=== PATIENT | female | born 1940 | race Caucasian/White ===

== ENCOUNTER 2024-06-14 13:36 | Outpatient (REF) | payer MEDICARE, SELFPAY ==
--- NOTE | 2024-06-14 13:44 | EMG_ITS ---
Chief complaint: A few years of right hand numbness, especially in the morning, history of cervical fusion Reason for referral: Evaluate for Carpal Tunnel Syndrome Referred by: Bart PATEL Procedure done: Right upper extremity NCS/EMG Precautions and/or limitations: Previous cervical fusion The limb temperature was monitored continuously and remained between 32-36 degrees C during the performance of the NCS. Ulnar motor NCS was performed with moderate elbow flexion between 70-90 degrees, with across-elbow distance of 10 cm. Nerve Conduction Studies Anti Sensory Summary Table ?Stim Site NR Onset (ms) Norm Onset (ms) Peak (ms) Norm Peak (ms) O-P Amp (?V) Norm O-P Amp Site1 Site2 Delta-0 (ms) Dist (cm) Alvin (m/s) Norm Alvin (m/s) Right Median Anti Sensory (2nd Digit) Wrist NR <3.6 >10 Right Radial Anti Sensory (Thumb) Forearm ? 1.8 2.4 <3.1 17.7 Forearm Thumb 1.8 0.0 Right Ulnar Anti Sensory (5th Digit) Wrist ? 2.8 3.6 <3.7 17.1 >15.0 Wrist 5th Digit 2.8 14.0 50 Motor Summary Table ?Stim Site NR Onset (ms) Norm Onset (ms) O-P Amp (mV) Norm O-P Amp iAmp (mV) Amp (1st) (%) Site1 Site2 Delta-0 (ms) Dist (cm) Alvin (m/s) Norm Alvin (m/s) Right Median Motor (Abd Poll Brev) Wrist ? 7.1 <3.9 3.4 >4.5 3.9 100.0 Elbow Wrist 3.2 17.0 53 >45 Elbow ? 10.3 3.1 3.6 91.2 Right Ulnar Motor (Abd Dig Minimi) Wrist ? 3.4 <3.0 10.3 >5 12.1 100.0 B Elbow Wrist 2.8 18.0 64 >45 B Elbow ? 6.2 9.8 11.6 95.1 A Elbow B Elbow 1.1 10.0 91 >45 A Elbow ? 7.3 9.9 11.7 96.1 EMG ?Side Muscle Nerve Root Ins Act Fibs Psw Amp Dur Poly Recrt Int Pat Comment Right 1stDorInt Ulnar C8-T1 Incr 1+ 1+ Nml Nml 0 Nml Complete Right FlexCarRad Median C6-7 Nml Nml Nml Nml Nml 0 Nml Complete Right Biceps Musculocut C5-6 Nml Nml Nml Nml Nml 0 Nml Complete Right Triceps Radial C6-7-8 Nml Nml Nml Nml Nml 0 Nml Complete Right Deltoid Axillary C5-6 Nml Nml Nml Nml Nml 0 Nml Complete Right FlexCarpiUln Ulnar C8,T1 Nml Nml Nml Nml Nml 0 Nml Complete Right ExtIndicis Radial (Post Int) C7-8 Nml Nml Nml Nml Nml 0 Nml Complete FINDINGS: Right median motor nerve showed prolonged distal latency, small amplitude and normal conduction velocity. Right ulnar motor nerve showed prolonged distal latency, normal amplitude and normal conduction velocity. Right median sensory nerve absent response. All other nerves tested were within normal. Concentric needle EMG was performed in selected muscles of the right upper extremity. Study revealed signs of electric abnormalities as shown in the table above. Right FDI showed increased insertional activity, PSWs and fibrillations. IMPRESSION: 1. This is an abnormal study. 2. 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 3. There are electrodiagnostic findings suggestive of a either chronic ulnar neuropathy versus C8-T1 cervical radiculopathy. CLINICAL COMMENT: Further clinical correlation recommended. Thank you for your kind referral. Maritza Tabor MD, CARLOS Board Certified, [place] Board of [employer] Medicine and Rehabilitation (ABPMR) Board Certified, [place] Board of Electrodiagnostic Medicine (ABEM) CODIN [id number] [facility]
--- OUTSIDE RECORDS SUMMARY | 2024-06-14 16:27 | XMS_ITS | Encounter Summary ---
Author Organization [facility] Address [address] [place] [address] Care Team Providers Care Pin Or Clip Fastener Name Role Phone Elio Dillard MD Primary Care Provider [phone] Reason for Referral * Imaging (Routine) - Authorized Specialty Diagnoses / Procedures Referred By Contac t Referred To Contact Radiology Diagnoses Osteoporosis, unspecified osteoporosis type, unspecified pathological fracture presence Procedures BD Bone Density DXA Axial Skeleton Elio Dillard MD [address] [place] [address] Phone: tel: fax: [address] [address] Phone: tel: Referral ID Status Reason Start Date Expiration Date V isits Requested Visits Authorized [id number] Authorized 05/01/2024 05/01/2025 1 1 Reason for Visit * Imaging (Routine) - Authorized Specialty Diagnoses / Procedures Referred By Contac t Referred To Contact Radiology Diagnoses Osteoporosis, unspecified osteoporosis type, unspecified pathological fracture presence Procedures BD Bone Density DXA Axial Skeleton Elio Dillard MD [address] [place] [address] Phone: tel: fax: [address] [address] Phone: tel: Referral ID Status Reason Start Date Expiration Date V isits Requested Visits Authorized [id number] Authorized 05/01/2024 05/01/2025 1 1 Encounter Details Date Type Department Care Team (Latest Contact Info) Description 06/13/2024 10:20 AM EDT - 06/13/2024 11:59 PM EDT Hospital Encounter [facility] Bone Density [address] [place] [address] Osteoporosis, unspecified osteoporosis type, unspecified pathological fracture presence Discharge Disposition: Home or Self Care Social History Tobacco Use Types Packs/Day Years Used Date Smoking Tobacco: Former Smokeless Tobacco: Former Alcohol Use Standard Drinks/Week Comments Yes 0 (1 standard drink = 0.6 oz pur e alcohol) Comments No Sex and Gender Information Value Date Recorded Sex Assigned at Female 01/30/2024 12:55 PM EST Legal Sex Female 10:58 PM EST Gender Identity Female 01/30/2024 12:55 PM EST Sexual Orientation Straight 03/09/2024 9: 55 AM EST documented as of this encounter Medications at Time of Discharge acetaminophen (TYLENOL) 500 mg tablet Take 1 tablet (500 mg total) by mouth every 8 (eight) hours if needed. alendronate (FOSAMAX) 70 mg tablet Take 70 mg by mouth every 7 days. Take with water on empty stomach/Nothin g by mouth and do not lie down for next 30 minutes atorvastatin (LIPITOR) 10 mg tablet Take 10 mg by mouth daily. 02/12/2020 calcium citrate-vitamin D (CITRACAL+D) 315 mg-5 mcg (200 unit) per tablet Take 1 tablet by mouth 1 (one) time each day. CHOLECALCIFEROL, VITAMIN D3, ORAL Take by mouth. escitalopram (LEXAPRO) 5 mg tablet Take 1 tablet (5 mg total) by mouth 1 (one) time each day. meloxicam (MOBIC) 15 mg tablet Take 0.5 tablets (7.5 mg total) by mouth 1 (one) time each day. 01/09/2020 MULTIVITAMIN ORAL Take by mouth. omega-3 fatty acids 1,000 mg capsule Take 1 capsule by mouth daily. omeprazole (PriLOSEC) [address] capsule Take 20 mg by mouth daily. 02/12/2020 documented as of this encounter Discharge Disposition Disposition Code Departure Means Destination Home or Self Care documented in this encounter Plan of Treatment Upcoming Encounters Date Type Department Care Team (Late st Contact Info) Description 10/02/2024 11:30 AM EDT Office Visit [facility] Hematology Oncology [address] [place] [phone] Hector Rodriguez MD [address] [place] [address] documented as of this encounter Procedures Procedure Name Priority Date/Time Associated Diagnosis Comments BD BONE DENSITY DXA AXIAL SKELETON Routine 06/13/2024 10:40 AM EDT Osteoporosis, unspecified osteoporosis type, unspecified pathological fracture presence documented in this encounter Results * BD Bone Density DXA Axial Skeleton (06/13/2024 10:40 AM EDT) Anatomical Region Laterality Modality Wrist, Hip, L-spine Bone Densito metry 06/14/2024 10:3 5 AM EDT Impressions 06/14/2024 10:37 AM EDT There is no evidence of osteoporosis or osteopenia. ??There has been an increase of 8.4% in bone mineral density in the lumbar spine since the prior examination of 11/29/2022. Code 42310 -------- FINAL REPORT -------- Dictated By: Price Cali Dictated Date: 06/14/2024 10:35 ET Assigned Physician: Price Cali Reviewed and Electronically Signed By: Price Cali Signed Date: 06/14/2024 10:37 ET Workstation ID: [id number] Transcribed By: Self Edit Transcribed Date: 06/14/2024 10:35 ET Narrative 06/14/2024 10:37 AM EDT HISTORY: ??The patient is an 83-year-old postmenopausal female with clinical concern for metabolic bone disease. The patient has undergone previous total bilateral hip replacement surgery. FINDINGS: ??Dual energy x-ray absorptiometry of the lumbar spine is performed. The mean bone mineral density at L1-3 (with the exclusion of L2) is 1.175 gm/cm2 which is 101% of that of young normals and 131% of that of age matched controls. This yields a T-score of 0.1 and a Z-score of 2.3 and there is therefore no evidence of osteoporosis or osteopenia here. Procedure Note Price Cali MD - 06/14/2024 HISTORY: The patient is an 83-year-old postmenopausal female withclinical concern for metabolic bone disease. The patient has undergoneprevious total bilateral hip replacement surgery. FINDINGS: Dual energy x-ray absorptiometry of the lumbar spine isperformed. The mean bone mineral density at L1-3 (with the exclusion ofL2) is 1.175 gm/cm2 which is 101% of that of young normals and 131% ofthat of age matched controls. This yields a T-score of 0.1 and a Z-scoreof 2.3 and there is therefore no evidence of osteoporosis or osteopeniahere. IMPRESSION: There is no evidence of osteoporosis or osteopenia. There has been anincrease of 8.4% in bone mineral density in the lumbar spine since theprior examination of 11/29/2022. Code 06363 -------- FINAL REPORT -------- Dictated By: Price Cali Dictated Date: 06/14/2024 10:35 ET Assigned Physician: Price Cali Reviewed and Electronically Signed By: Price Cali Signed Date: 06/14/2024 10:37 ET Workstation ID: [id number] Transcribed By: Self Edit Transcribed Date: 06/14/2024 10:35 ET Elio Dillard MD IM DXA PROCEDURES Final Res ult documented in this encounter Visit Diagnoses Diagnosis Osteoporosis, unspecified osteoporosis type, unspecified pathological fracture presence documented in this encounter Care Teams Pin Or Clip Fastener Relationship Specialty Start Date End Date Elio Dillard MD [address] [place] [phone] PCP - General Internal Medicine 02/26/08 documented as of this encounter
--- OUTSIDE RECORDS SUMMARY | 2024-06-14 16:27 | XMS_ITS | Encounter Summary ---
Author Organization [facility] Address [address] [place] [address] Care Team Providers Care Retail Services Professional Name Role Phone Elio Dillard MD Primary Care Provider [phone] Encounter Details Date Type Department Care Team (Latest Contact Info) Description 02/23/2024 Lab Requisition [facility] - Main Lab 299 [facility] [place] [phone] Rinku Geller MD [address] [phone] Postmenopausal bleeding Social History Tobacco Use Types Packs/Day Years Used Date Smoking Tobacco: Former Smokeless Tobacco: Former Alcohol Use Standard Drinks/Week Comments Yes 0 (1 standard drink = 0.6 oz pur e alcohol) Comments Unknown Sex and Gender Information Value Date Recorded Sex Assigned at Female 01/30/2024 12:55 PM EST Legal Sex Female 10:58 PM EST Gender Identity Female 01/30/2024 12:55 PM EST Sexual Orientation Straight 03/09/2024 9: 55 AM EST documented as of this encounter Plan of Treatment Upcoming Encounters Date Type Department Care Team (Late st Contact Info) Description 10/02/2024 11:30 AM EDT Office Visit [facility] Hematology Oncology [address] [place] [address] Hector Rodriguez MD [address] [place] [phone] documented as of this encounter Procedures Procedure Name Priority Date/Time Associated Diagnosis Comments TISSUE EXAM Routine 02/23/2024 Postmenopausal bleeding documented in this encounter Results * Tissue Exam (02/23/2024) Final Diagnosis Endometrium, biopsy: No tissue is identified on hematoxylin and eosin stained sections. (See note.) Note: On gross evaluation minimal material was identified in the specimen jar. The material was submitted for histologic evaluation but did not survive processing. 02/24/2024 11:42 AM [facility] Clinical Information PMB 02/24/2024 11:42 AM [facility] Gross Description A. Endometrium, biopsy: Labeled with the patient's name and information only. Received in formalin is an approximately less than 0.1 cm cm aggregate of scant, white tissue flakes, which is wrapped in paper and submitted in toto in one cassette, multiple pieces, multiple levels. Please note: Specimen may not survive processing. dvb/AL 02/24/2024 11:42 AM [facility] Disclaimer Unless otherwise specified, all tissue is 10% NB formalin fixed and paraffin embedded. 02/24/2024 11:42 AM [facility] Tissue Endometrial structure / Unknown 02/23/2024 02/23/2024 2:51 PM EST us Rinku Geller MD LAB PATHOLOGY ORDERABLES Final Result [facility] [address] [place] [address], documented in this encounter Visit Diagnoses Diagnosis Postmenopausal bleeding documented in this encounter Care Teams Retail Services Professional Relationship Specialty Start Date End Date Elio Dillard MD [address] [place], [place] [phone] (Work) PCP - General Internal Medicine 02/26/08 documented as of this encounter
--- OUTSIDE RECORDS SUMMARY | 2024-06-14 16:27 | XMS_ITS | Encounter Summary ---
Author Organization [facility] Address [address] [place] [address] Care Team Providers Care Die Grinder Name Role Phone Elio Dillard MD Primary Care Provider [phone] Encounter Details Date Type Department Care Team (Late st Contact Info) Description 02/23/2024 Lab Requisition [facility] - Main Lab 299 [facility] [place] [phone] Rinku Geller MD [address] [phone] Unspecified abnormal cytological findings in specimens from cervix uteri Social History Tobacco Use Types Packs/Day Years [...] Encounters Date Type Department Care Team (Late Contact Info) Description 10/02/2024 11:30 AM EDT Office Visit [facility] Hematology Oncology [address] [place] [phone] Hector Rodriguez MD [address] [place] [phone] documented as of this encounter Procedures Procedure Name Priority Date/Time Associated Diagnosis Comments PAP SMEAR Routine 02/23/2024 12:00 AM EST Unspecified abnormal cytological findings in specimens from cervix uteri documented in this encounter Results * Pap smear (02/23/2024 12:00 AM EST) Interpretation Negative for intraepithelial lesion or malignancy 03/01/2024 11:[address] [facility] Clinical Information 03/01/2024 11:[address] [facility] General Categorization Negative 03/01/2024 11:[address] [facility] Specimen Adequacy Satisfactory for evaluation, endocervical/koenig sformation zone component present 03/01/2024 11:[address] [facility] Pap Methodology Liquid Based Pap Test 03/01/2024 11:[address] [facility] Disclaimer The Pap test is a screening test which carries an inherent false negative rate. These test results should be correlated with the patient's clinical findings and history. This Pap test was processed using an automated screening system. Technical cytopathology services provided by [facility], at [address] [place] [phone] (CLIA # [id number]/Almas Hong MD, Software Consultant.) 03/01/2024 11:[address] [facility] Console Pap Interpretation Reported 03/01/2024 11:[address] [facility] Brushing/Spatula Cervix uteri structure / Unknown 02/23/2024 02/23/2024 3:21 PM EST us Rinku Geller MD LAB CYTOLOGY ORDERABLES Final Result [facility] [address] [place] [address], documented in this encounter Visit Diagnoses Diagnosis Unspecified abnormal cytological findings in specimens from cervix uteri documented in this encounter Care Teams Die Grinder Relationship Specialty Start Date End Date Elio Dillard MD [address] [place] [address] PCP - General Internal Medicine 02/26/08 documented as of this encounter
--- OUTSIDE RECORDS SUMMARY | 2024-06-14 16:28 | XMS_ITS | Clinical Summary ---
Author Organization [facility] Address [address] [place] [address] Care Team Providers Care Credit Analysis Manager Name Role Phone Elio Dillard MD Primary Care Provider [phone] Allergies Active Allergy Reactions Criticality Noted Date Comments Ciprofloxacin 11/01/2018 Medications Medication Sig Dispensed Refills Start Date End Date Status acetaminophen (TYLENOL EXTRA STRENGTH) 500 MG tablet Take by mouth. 0 Active atorvastatin (LIPITOR) tablet 10 mg Take 10 mg by mouth daily. 0 02/12/2020 Active meloxicam (MOBIC) 15 MG tablet Take 15 mg by mouth daily. 0 01/09/2020 Active omeprazole (PriLOSEC) 20 MG capsule Take 20 mg by mouth daily. 0 02/12/2020 Active alendronate (FOSAMAX) tablet 70 mg Take 70 mg by mouth every 7 days. 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 Neck pain 04/02/2020 Arthritis 10/19/2019 Hemochromatosis 10/19/2019 Left groin hernia 10/19/2019 Mitral valve prolapse 10/19/2019 Social History Tobacco Use Types Packs/Day Years Used Date Smoking Tobacco: Former Smokeless Tobacco: Former Alcohol Use Standard Drinks/Week Comments Yes 0 (1 standard drink = 0.6 oz pur e alcohol) Sex and Gender Information Value Date Recorded Sex Assigned at Female 10/19/2019 3:12 PM EDT Gender Identity Not on file Sexual Orientation Not on file Job Start Date Occupation Industry Not on file Not on file Not on file Last Filed Vital Signs Vital Sign Reading Time Taken Comments Blood Pressure 142/82 10/03/2023 11:55 AM EDT Pulse 103 10/03/2023 11:55 AM EDT Temperature 36.3 ??C (97.4 ??F) 10/03/2023 11:55 AM E DT Respiratory Rate - - Oxygen Saturation 98% 10/03/2023 11:55 AM EDT Inhaled Oxygen Concentration - - Weight 55.3 kg (122 lb) 10/03/2023 11:55 AM EDT Height 154.9 cm (5' 1 ) 10/03/2023 11:55 AM EDT Body Mass Index 23.05 10/03/2023 11:55 AM EDT Plan of Treatment Health Maintenance Due Date Last Done Comments Depression Screening 1952 Preventative Health Evaluation 1958 DTap / Tdap / Td (1 - Tdap) 06/16/1959 Fall Risk Assessment 2005 Osteoporosis Screening (DEXA Scan) 2005 RSV Adult > 60+ Yrs or (1 - 1-dose 75+ series) 06/16/2015 Pneumococcal Vaccine (2 of 2 - PCV) 01/20/2021 01/21/2020 COVID-19 Vaccine (4 - 2023-2 5 season) 2023 11/26/2022, 08/25/2021, 01/02/2021 Influenza Vaccine (#1) 2023 3, 12/25/2021, 11/13/2020 Shingrix-Zoster Vaccine Completed 09/25/19 23, 05/25/2022 Hepatitis B Vaccines Aged Out No long er eligible based on patient's age to complete this topic RSV Ped < 20 months Aged Out No longe r eligible based on patient's age to complete this topic Advance Directives For more information, please contact: [phone] Documents on File Type Date Recorded Patient Campus Receptionist Expl anation Advance Directive and Living Will 10/19/2019 3:07 PM Care Teams Credit Analysis Manager Relationship Specialty Start Date End Date Elio Dillard MD PCP - General Internal Medicine 07/14/16
--- OUTSIDE RECORDS SUMMARY | 2024-06-14 16:28 | XMS_ITS | Continuity of Care Document ---
Author Organization [facility] Address [address] [facility] [facility] [address] [place] [address] Phone [phone] Social History Type Date Description Comments Sex Unknown Medical Devices Description No Information Available Encounters Description No Information Available Assessments Description No Information Available Plan of Treatment No Information Available Functional Status Description No Information Available Mental Status Description No Information Available Referrals Description No Information Available
--- OUTSIDE RECORDS SUMMARY | 2024-06-14 16:28 | XMS_ITS | Clinical Summary ---
Author Organization [facility] Address [address] [place] [address] Phone Care Team Providers Care Pharmacy Affairs Assistant Name Role Phone Elio Dillard MD Primary Care Provider [phone] Allergies Active Allergy Reactions Criticality Noted Date Comments Ciprofloxacin Rash 11/01/2018 Medications acetaminophen (TYLENOL) 500 mg tablet Take 1 tablet (500 mg total) by mouth every 8 (eight) hours if needed. Active alendronate (FOSAMAX) 70 mg tablet Take 70 mg by mouth every 7 days. Take with water on empty stomach/Noth ing by mouth and do not lie down for next 30 minutes Active atorvastatin (LIPITOR) 10 mg tablet Take 10 mg by mouth daily. 02/12/2020 Active meloxicam (MOBIC) 15 mg tablet Take 0.5 tablets (7.5 mg total) by mouth 1 (one) time each day. 01/09/2020 Active omeprazole (PriLOSEC) [address] capsule Take 20 mg by mouth daily. 02/12/2020 Active escitalopram (LEXAPRO) 5 mg tablet Take 1 tablet (5 mg total) by mouth 1 (one) time each day. Active CHOLECALCIFEROL , VITAMIN D3, ORAL Take by mouth. Active omega-3 fatty acids 1,000 mg capsule Take 1 capsule by mouth daily. Active MULTIVITAMIN ORAL Take by mouth. Active calcium citrate-vitamin D (CITRACAL+D) 315 mg-5 mcg (200 unit) per tablet Take 1 tablet by mouth 1 (one) time each day. Active Active Problems Problem Noted Date Diagnosed Date Esophageal dysmotility 03/23/2024 Assessment & Plan (03/23/2024 10:49 AM EST): As seen on barium swallow. Likely cause of difficulty swallowing. EGD not indicated at this time. Chew slowly and thoroughly. Avoid large bites and [id number] foods. Favoring a softer food diet is recommended. When swallowing pills, ensure adequate water intake and/or swallow with applesauce, pudding, or yogurt. 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 Bone Density [address] [place] [address] Osteoporosis, unspecified osteoporosis type, unspecified pathological fracture presence Discharge Disposition: Home or Self Care 05/04/2024 3:07 PM EST - 05/04/2024 11:59 PM EST Hospital Encounter [facility] Xray [address] [place] [address] Cervicalgia Discharge Disposition: Home or Self Care 04/09/2024 8:53 AM EST Anesthesia Event [facility] Main OR [address] [place] [address] Jose Manuel Austin MD 04/09/2024 8:45 AM EST - 04/09/2024 10:[address] [facility] Main OR [address] [place] [address] Rinku Geller MD FRACTIONAL D&C [[id number] (CPT??)] 04/09/2024 7:03 AM EST - 04/09/2024 11:26 AM EST Hospital Encounter [facility] Main OR [address] [place] [address] Rinku Geller MD Postmenopausal bleeding (Primary Dx) Discharge Disposition: Home or Self Care 03/23/2024 10:20 AM EST Office Visit Gastroenterology - [address] [facility] [address] [place] [id number] Jo-Ann Clay PA Esophageal dysmotility (Primary Dx) from Last 3 Months Immunizations Name Administration Dates Next Due Pfizer (ages 12 & older) ALEXANDRA S-CoV-2 COVID-19, mRNA, LNP-S, viky-sucrose, preservative free 08/25/2021 Pfizer SARS-CoV-2 COVID-19, mRNA, LNP-S, preservative free 11/26/2022,08/25/2021,01/02/2021 Surgical History Surgery Date Site/Laterality Comments HIP SURGERY PROCEDURE:HIP SURGERY KNEE SURGERY PROCEDURE:KNEE SURGERY COLONOSCOPY 11/13/2013 ESOPHAGOGASTRODUODENOSCOPY 06/02/2017 small HH ESOPHAGOGASTRODUODENOSCOPY 04/10/2021 CERVICAL FUSION LUMBAR FUSION TOTAL KNEE ARTHROPLASTY Left TOTAL HIP ARTHROPLASTY Bilateral REVISION TOTAL HIP ARTHROPLASTY Right Medical History Medical History Date Comments Hyperlipidemia Atrial flutter (CMS/HCC V24, CMS/HCC V28) Hemochromatosis Arthritis Vaso vagal episode HX OF MULTIPL E EPISODES Social History Tobacco Use Types Packs/Day Years [...] Orientation Straight 03/09/2024 9: 55 AM EST Obstetrics History Last Filed Vital Signs Vital Sign Reading Time Taken Comments Blood Pressure 134/85 04/09/2024 10:29 AM EST Pulse 72 04/09/2024 10:29 AM EST Temperature 36.2 ??C (97.2 ??F) 04/09/2024 10:[address] Respiratory Rate 18 04/09/2024 10:29 AM EST Oxygen Saturation 98% 04/09/2024 10:29 AM EST Inhaled Oxygen Concentration - - Weight 55.8 kg (123 lb) 03/23/2024 10:08 AM EST Height 157.5 cm (5' 2 ) 03/23/2024 10:08 AM EST Body Mass Index 22.5 03/23/2024 10:08 AM EST Plan of Treatment Upcoming Encounters Date Type Department Care Team (Late st Contact Info) Description 10/02/2024 11:30 AM EDT Office Visit [facility] Hematology Oncology [address] [place] [address] Hector Rodriguez MD [address] [place] [address] Health Maintenance Due Date Last Done Comments DTaP,Tdap,and Td Vaccines (1 - Tdap) 06/16/1959 Cholesterol Screening (Lipid Panel) 02/12/2022 Depression Screening 02/12/2022 Medicare Annual Wellness Visit 02/12/2022 Social Influencers of Health Screening 02/12/2022 COVID-19 Vaccine ( season) 2023 11/26/2022, 01/04/2022, 08/25/2021, Additional history exists Falls Risk Assessment 04/09/2025 04/09/2024 Osteoporosis Screening (Bone Density Screening) 11/30/2032 06/13/2024, 11/30/2022, 08/05/2020, Additional history exists Zoster Vaccines Completed 09/24/2022, 05/25/2022 Pneumococcal Vaccine: 50+ Years Completed 12/15/2022, 01/21/2020 Influenza Vaccine Completed 11/28/2023, , 12/25/2021, Additional history exists RSV Immunization Adult Patients Completed 05/07/2024 HIB Vaccines Aged Out No longer eligi ble based on patient's age to complete this topic HPV Vaccines Aged Out No longer eligi ble based on patient's age to complete this topic Hepatitis A Vaccines Aged Out No long er eligible based on patient's age to complete this topic Hepatitis B Vaccines Aged Out No long er eligible based on patient's age to complete this topic IPV Vaccines Aged Out No longer eligi ble based on patient's age to complete this topic MMR Vaccines Aged Out No longer eligi ble based on patient's age to complete this topic Meningococcal ACWY Vaccine Aged Out N o longer eligible based on patient's age to complete this topic Meningococcal B Vaccine Aged Out No l onger eligible based on patient's age to complete this topic RSV Immunization Patients Under 20 months Aged Out No longer eligible based on patient's age to complete this topic Varicella Vaccines Aged Out No longer eligible based on patient's age to complete this topic Procedures Procedure Name Priority Date/Time Associated Diagnosis Comments BD BONE DENSITY DXA AXIAL SKELETON Routine 06/13/2024 10:40 AM EDT Osteoporosis, unspecified osteoporosis type, unspecified pathological fracture presence XR CERVICAL SPINE 4-5 VIEWS Routine 05/04/2024 3:22 PM EST Cervicalgia OXYGEN THERAPY, ADULT Routine 04/09/2024 9:47 AM EST OXYGEN THERAPY, ADULT Routine 04/09/2024 9:47 AM EST TH AN LMA(NO CHARGE) Routine 04/09/2024 9:19 AM EST TISSUE EXAM Routine 04/09/2024 9:13 AM EST Postmenopausal bleeding AL HYSTEROSCOPY W/BIOPSY ENDOMETRIUM AND/OR POLYPECTOMY W/O AND/OR W/D&C 04/09/2024 8:53 AM EST Postmenopausal bleeding CBC WITH AUTO DIFFERENTIAL Routine 04/02/2024 12:41 PM EST Post-menopausal bleeding CBC AND DIFFERENTIAL Routine 04/02/2024 12:41 PM EST Post-menopausal bleeding TYPE AND SCREEN Routine 04/02/2024 12:41 PM EST Post-menopausal bleeding from Last 3 Months Results * BD Bone Density DXA Axial Skeleton (06/13/2024 10:40 AM EDT) Anatomical Region Laterality Modality Wrist, Hip, L-spine Bone Densito metry 06/14/2024 10:3 5 AM EDT Impressions 06/14/2024 10:37 AM EDT There is no evidence of osteoporosis or osteopenia. ??There has been an increase of 8.4% in bone mineral density in the lumbar spine since the prior examination of 11/29/2022. Code 16128 -------- FINAL REPORT -------- Dictated By: Price Cali Dictated Date: 06/14/2024 10:35 ET Assigned Physician: Price Cali Reviewed and Electronically Signed By: Price Cali Signed Date: 06/14/2024 10:37 ET Workstation ID: [id number] Transcribed By: Self Edit Transcribed Date: 06/14/2024 [...] spine since theprior examination of 11/29/2022. Code 31014 -------- FINAL REPORT -------- Dictated By: Price Cali Dictated Date: 06/14/2024 10:35 ET Assigned Physician: Price Cali Reviewed and Electronically Signed By: Price Cali Signed Date: 06/14/2024 10:37 ET Workstation ID: [id number] Transcribed By: Self Edit Transcribed Date: 06/14/2024 10:35 ET Elio Dillard MD IMG DXA PROCEDURES Final Res ult * XR Cervical Spine 4-5 Views (05/04/2024 3:22 PM EST) Anatomical Region Laterality Modality Spine, C-spine Radiographic Amber ging 05/09/2024 8:19 AM EST Impressions 05/09/2024 8:22 AM EST The patient is seen to have undergone previous anterior fusion at the C4-5 level. Severe bony demineralization. Alignment is anatomic and there is no abnormal relative bony motion with flexion and extension. Good range of motion is seen. There is degenerative disc disease at the C3-4, C5-6, C6-7, and C7-T1 levels. Code 03248 -------- FINAL REPORT -------- Dictated By: Price Cali Dictated Date: 05/09/2024 08:19 ET Assigned Physician: Price Cali Reviewed and Electronically Signed By: Price Cali Signed Date: 05/09/2024 08:22 ET Workstation ID: [id number] Transcribed By: Self Edit Transcribed Date: 05/09/2024 08:19 ET Narrative 05/09/2024 8:22 AM EST HISTORY: The patient is an 83-year-old female with neck pain. No history of trauma is provided. FINDINGS: Lateral radiographs of the cervical spine in neutral, flexion, and extension positions, along with an AP view, are obtained. No prior study is available for comparison. The patient is seen to have undergone previous anterior fusion at the C4-5 level. The surgical hardware appears well-positioned and intact. There is severe bony demineralization. The alignment of the bony structures is anatomic. No fracture is seen. There is severe bony narrowing of the C3-4, C5-6, C6-7, and C7-T1 disc spaces with adjacent small osteophytes consistent with degenerative disc disease. There is no abnormal relative bony motion with flexion and extension. There is good range of motion. There is no prevertebral soft tissue swelling. Procedure Note Price Cali MD - 05/09/2024 HISTORY: The patient is an 83-year-old female with neck pain. No historyof trauma is provided. FINDINGS: Lateral radiographs of the cervical spine in neutral, flexion,and extension positions, along with an AP view, are obtained. No priorstudy is available for comparison. The patient is seen to have undergoneprevious anterior fusion at the C4-5 level. The surgical hardware appearswell-positioned and intact. There is severe bony demineralization. Thealignment of the bony structures is anatomic. No fracture is seen. Thereis severe bony narrowing of the C3-4, C5-6, C6-7, and C7-T1 disc spaceswith adjacent small osteophytes consistent with degenerative disc disease.There is no abnormal relative bony motion with flexion and extension.There is good range of motion. There is no prevertebral soft tissueswelling. IMPRESSION: The patient is seen to have undergone previous anterior fusion at the C4-5level. Severe bony demineralization. Alignment is anatomic and there is noabnormal relative bony motion with flexion and extension. Good range ofmotion is seen. There is degenerative disc disease at the C3-4, C5-6,C6-7, and C7-T1 levels. Code 06640 -------- FINAL REPORT -------- Dictated By: Price Cali Dictated Date: 05/09/2024 08:19 ET Assigned Physician: Price Cali Reviewed and Electronically Signed By: Price Cali Signed Date: 05/09/2024 08:22 ET Workstation ID: [id number] Transcribed By: Self Edit Transcribed Date: 05/09/2024 08:19 ET Elio Dillard MD IMG XR PROCEDURES Final Resu lt * TH AN LMA(NO CHARGE) (04/09/2024 9:19 AM EST) Forrest Wing RODRIGO - 04/09/2024 9:19 AM EST SeniaRODRIGO Gonzalez ? 04/09/2024 ??9:20 AM General Information and Staff Patient location during procedure: OR Resident/GEOSPATIAL ANALYST: RODRIGO Deras Performed by: RODRIGO Deras Authorized by: Jose Manuel Austin MD ?? Intubation Airway not difficult Urgency: elective Final Airway Details Final airway type: LMA Indications and Patient Condition Indications for airway management: anesthesia Spontaneous ventilation: present Sedation level: Yes Preoxygenated: yes Soft Tissue Damage: No Dentition Unchanged: No Patient position: neutral MILS maintained throughout Mask difficulty assessment: 1 - vent by mask us Jose Manuel Austin MD ANESTHESIA ORDERABLES Final Re sult * Tissue exam (04/09/2024 9:13 AM EST) Final Diagnosis A. Cervix, Endocervical curettings: Benign fragments of endocervical mucosa, detached fragments of squamous mucosa, and strips of atrophic endometrium in a background of benign stromal fragments. Negative for dysplasia. B. Uterus, Endometrial curettings: Benign endometrial polyp with cystic atrophy and fibrosis. No hyperplasia, atypia, or neoplasia identified. 04/10/2024 11:06 AM [facility] Gross Description A. Cervix, Endocervical curettings: Labeled endocervi, cervix . Received in formalin, on Telfa, is an approximately 0.8 x 0.5 x 0.2 cm aggregate of white-pink to red, mucoid material and clotted blood. The specimen is wrapped in paper and submitted in toto in one cassette, multiple pieces, x2. B. Uterus, Endometrial curettings: Labeled uterus, endometri . Received in formalin, on Telfa, is an approximately 1.5 x 1.5 x 0.4 cm aggregate of soft to rubbery, white-cline to pink-red tissue fragments and minimal clotted blood, which is wrapped in paper and submitted in toto in one cassette, multiple pieces, x2. Please note: Small tissue fragments may not survive processing. dvb/AL 04/10/2024 11:06 AM [facility] Disclaimer Unless otherwise specified, all tissue is 10% NB formalin fixed and paraffin embedded. 04/10/2024 11:06 AM [facility] Tissue Cervix uteri structure / Unknown 04/09/2024 9:13 AM EST 04/09/2024 10:44 AM EST Tissue specimen (specimen) Uterine structure / Unknown 04/09/2024 9:15 AM EST 04/09/2024 10:44 AM EST us Rinku Geller MD LAB PATHOLOGY ORDERABLES Final Result [facility] [address] [place] [address], * (ABNORMAL) CBC auto differential (04/02/2024 12:41 PM EST) WBC 5.8 4.8 - 10.8 K/mcL LAB HEMETOLOGY METHOD 04/02/2024 2:47 PM [facility] RBC 3.70(L) 3.80 - 4.80 M/mcL LAB HEMETOLOGY METHOD 04/02/2024 2:47 PM [facility] Hemoglobin 13.5 11.5 - 16.0 g/dL LAB HEMETOLOGY METHOD 04/02/2024 2:47 PM [facility] Hematocrit 39.9 35.0 - 47.0 % LAB HEMETOLOGY METHOD 04/02/2024 2:47 PM [facility] MCV 109.0(H) 79.0 - 98.0 FL LAB HEMETOLOGY METHOD 04/02/2024 2:47 PM [facility] MCH 36.9(H) 27.0 - 32.0 pcg LAB HEMETOLOGY METHOD 04/02/2024 2:47 PM [facility] MCHC 33.8 32.0 - 37.0 g/dL LAB HEMETOLOGY METHOD 04/02/2024 2:47 PM [facility] RDW 13.0 11.0 - 15.0 % LAB HEMETOLOGY METHOD 04/02/2024 2:47 PM [facility] Platelets 213 130 - 400 K/mcL LAB HEMETOLOGY METHOD 04/02/2024 2:47 PM [facility] MPV 9.9 7.0 - 11.0 FL LAB HEMETOLOGY METHOD 04/02/2024 2:47 PM [facility] NRBC 0.0 <1.0 % LAB HEMETOLOGY METHOD 04/02/2024 2:47 PM [facility] NRBC Absolute 0.00 <0.10 K/mcL LAB HEMETOLOGY METHOD 04/02/2024 2:47 PM [facility] Neutrophils Relative 58.8 % LAB HEMETOLOGY METHOD 04/02/2024 2:47 PM [facility] Lymphocytes Relative 25.6 % LAB HEMETOLOGY METHOD 04/02/2024 2:47 PM [facility] Monocytes Relative 13.3 % LAB HEMETOLOGY METHOD 04/02/2024 2:47 PM [facility] Eosinophils Relative 0.9 % LAB HEMETOLOGY METHOD 04/02/2024 2:47 PM [facility] Basophils Relative 0.7 % LAB HEMETOLOGY METHOD 04/02/2024 2:47 PM [facility] Immature Granulocytes Relative 0.7 % LAB HEMETOLOGY METHOD 04/02/2024 2:47 PM [facility] Neutrophils Absolute 3.42 1.50 - 7.00 K/mcL LAB HEMETOLOGY METHOD 04/02/2024 2:47 PM [facility] Lymphocytes Absolute 1.49 1.00 - 5.00 K/mcL LAB HEMETOLOGY METHOD 04/02/2024 2:47 PM EST [facility] Monocytes Absolute 0.77 0.20 - 1.00 K/mcL LAB HEMETOLOGY METHOD 04/02/2024 2:47 PM EST [facility] Eosinophils Absolute 0.05 0.00 - 0.50 K/mcL LAB HEMETOLOGY METHOD 04/02/2024 2:47 PM EST [facility] Basophils Absolute 0.04 0.00 - 0.20 K/[facility] LAB HEMETOLOGY METHOD 04/02/2024 2:47 PM EST [facility] Immature Granulocytes Absolute 0.04(H) 0.00 - 0.03 K/mcL LAB HEMETOLOGY METHOD 04/02/2024 2:47 PM EST [facility] Blood Venous blood specimen / Unknown Venipuncture / Unknown 04/02/2024 12:41 PM EST 04/02/2024 1:54 PM EST us Rinku Geller MD LAB BLOOD ORDERABLES Final Res ult [facility] [address] [place] [address], [place] [phone] * Type and screen (04/02/2024 12:41 PM EST) ABO Group O 04/02/2024 2:56 PM EST [facility] Rh Type Positive 04/02/2024 2:56 PM EST [facility] Antibody Screen Negative 04/02/2024 2:56 PM EST [facility] Blood Venous blood specimen / Unknown Venipuncture / Unknown 04/02/2024 12:41 PM EST 04/02/2024 1:54 PM EST us Rinku Geller MD LAB BLOOD BANK TEST ORDERABLES Final Result [facility] [address] [place] [address], [place] [phone] from Last 3 Months Insurance MEDICARE [facility] Advance Directives Documents on File Type Date Recorded Patient Pan Shaker Expl anation Health Care Decision (hx) 01/31/2023 AD APPLE DIRECTIVE Health Care Decision (hx) 01/11/2023 HE ALTH CARE PROXY Health Care Decision (hx) 01/11/2023 HE ALTH CARE PROXY Health Care Decision (hx) 01/11/2023 HE ALTH CARE PROXY Health Care Decision (hx) 01/11/2023 HE ALTH CARE PROXY Health Care Decision (hx) 01/11/2023 HE ALTH CARE PROXY Health Care Decision (hx) 01/11/2023 HE ALTH CARE PROXY Health Care Decision (hx) 04/19/2015 AD APPLE DIRECTIVE Health Care Decision (hx) 04/19/2015 AD APPLE DIRECTIVE Health Care Decision (hx) 04/19/2015 AD APPLE DIRECTIVE Health Care Decision (hx) 04/19/2015 AD APPLE DIRECTIVE Health Care Decision (hx) 04/19/2015 AD APPLE DIRECTIVE Health Care Decision (hx) 04/19/2015 AD PAPLE DIRECTIVE Health Care Decision (hx) 04/19/2015 AD APPLE DIRECTIVE Health Care Decision (hx) 04/19/2015 AD APPLE DIRECTIVE Health Care Decision (hx) 04/19/2015 AD APPLE DIRECTIVE Health Care Decision (hx) 04/19/2015 AD APPLE DIRECTIVE Health Care Decision (hx) 04/19/2015 AD APPLE DIRECTIVE Health Care Decision (hx) 04/19/2015 AD APPLE DIRECTIVE Health Care Decision (hx) 04/19/2015 AD APPLE DIRECTIVE Health Care Decision (hx) 04/19/2015 AD APPLE DIRECTIVE Health Care Decision (hx) 04/19/2015 AD APPLE DIRECTIVE Health Care Decision (hx) 04/19/2015 AD APPLE DIRECTIVE Health Care Decision (hx) 04/19/2015 AD APPLE DIRECTIVE Health Care Decision (hx) 04/19/2015 AD APPLE DIRECTIVE Health Care Decision (hx) 04/19/2015 AD APPLE DIRECTIVE Health Care Decision (hx) 04/19/2015 AD APPLE DIRECTIVE Health Care Decision (hx) 04/19/2015 AD APPLE DIRECTIVE Health Care Decision (hx) 04/19/2015 AD APPLE DIRECTIVE Health Care Decision (hx) 04/19/2015 AD APPLE DIRECTIVE Health Care Decision (hx) 04/19/2015 AD APPLE DIRECTIVE Health Care Decision (hx) 04/19/2015 AD APPLE DIRECTIVE Health Care Decision (hx) 04/19/2015 AD APPLE DIRECTIVE Health Care Decision (hx) 04/19/2015 AD APPLE DIRECTIVE * Full Code - Default (Latest Code Status on File) Date Activated Date Inactivated Comments 04/09/2024 7:59 AM 04/09/2024 1:37 PM This is order is used when code status has not been discussed with the patient, or code status is otherwise unknown/unconfirmed To update the patient's code status, place a code status order. Do not modify or discontinue any currently active code status orders. Care Teams Pharmacy Affairs Assistant Relationship Specialty Start Date End Date Elio Dillard MD [address] [place] [id number] PCP - General Internal Medicine 02/26/08
== END 2024-06-14 13:37 | disposition home or self-care (01) ==
LOC: HO.NEURO 13:36
PROVIDERS: PCP Internal Medicine
DX: G56.11 Other lesions of median nerve, right upper limb (principal)
CPT/HCPCS: 95860; 95886; 95909

== ENCOUNTER → 2024-06-14 13:44 | Outpatient (BNV) | payer MEDICARE, SELFPAY | PROVIDERS: PCP Internal Medicine; Visit Provider Physical Medicine & Rehabilitation | DX: G56.01 Carpal tunnel syndrome, right upper limb (principal) | CPT/HCPCS: 95886; 95909 ==

== ENCOUNTER 2024-06-22 10:31 | Outpatient (AMB) | payer MEDICARE, SELFPAY ==
--- NOTE | 2024-06-22 10:39 | A.OFFVIS_ITS ---
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 Patient reports she is having difficulty with lifting, gripping, grasping, and squeezing and any of these activities exacerbate her pain. She wakes up in the morning with numbness and tingling, as the day goes on it resolves with hand usage however comes back with over use of the right hand. Her symptoms are throughout her entire right hand digits. She would like to discuss surgical treatment today. Denies cramping, catching, and locking of her right hand digits. Tylenol offers her minimal relief. EMG/NCS done on 06/14/24 IMPRESSION: 1. This is an abnormal study. 2. 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 3. There are electrodiagnostic findings suggestive of a either chronic ulnar neuropathy versus C8-T1 cervical radiculopathy. Accompanied by: Spouse Allergies ciprofloxacin [From Cipro] Allergy (Intermediate, Verified 06/22/24 10:43) Rash [facility] Social History (Updated 06/22/24 @ 10:45 by KAHLIL Burdick) Alcohol intake: current Alcohol intake frequency: holidays/special occasions only Patient Tobacco Use Status: Never used Tobacco Current occupational status: retired Current occupation: right handed Physical Exam Vital Signs: BMI result Body Mass Index 22.7 Assessment & Plan Assessment & Plan (1) Right carpal tunnel syndrome: Code(s): G56.01 - Carpal tunnel syndrome, right upper limb Category: Medical (2) Ulnar neuropathy of right upper extremity: Code(s): G56.21 - Lesion of ulnar nerve, right upper limb Category: Medical Plan History of Present Illness The patient is an 84-year-old female presenting for evaluation of right hand symptoms and results of recent electromyography and nerve conduction studies, which demonstrated right carpal tunnel syndrome and potential chronic ulnar neuropathy or cubital tunnel syndrome. She has a history, including cervical spinal fusion, that may contribute to her current condition. Symptoms include numbness and tingling in the right hand, primarily affecting the small finger, with numbness consistently present and most pronounced in the mornings. The patient exhibits significant thenar muscle wasting. Despite dense numbness in her right hand, she does not report associated pain. 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 Currently, the patient prefers exploring non-surgical options. Review of Systems - Neurological: Reports numbness and tingling in the right hand, especially the small finger, without associated pain. - Musculoskeletal: Reports muscle wasting in the thenar eminence of the right hand. - Constitutional: Denies significant discomfort apart from numbness. Systems reviewed and are negative except as per HPI and below Physical Exam Neuro: Diminished sensation of the tips of all digits of the right hand in the office today Significant thenar wasting, no intrinsic wasting Weekend APB muscle firing and good finger cross. Vascular: Capillary refill brisk. ROM: Patient can make a fist and extend all their digits. Skin: No lacerations or abrasions noted. General: No ecchymosis. No erythema or evidence of infection. Results - Tests and Diagnostics: EMG and nerve conduction studies indicating right carpal tunnel syndrome; potential chronic ulnar neuropathy or cubital tunnel syndrome. Procedure Plan During this visit, we focused on evaluating the patient's right carpal tunnel syndrome, compounded by potential chronic ulnar neuropathy or cubital tunnel syndrome. Surgical intervention was proposed for carpal tunnel syndrome to mitigate muscle wasting and numbness, though the patient opted for non-surgical management due to the lack of pain and preference for conservative treatment. I recommended nocturnal bracing and occupational therapy to manage symptoms. We considered corticosteroid injections as an intervention, and arrangements were made for the patient to consult with Dr. Garcia for further exploration of this option. A detailed understanding of the patient's context and current condition influenced this plan. Patient was informed and verbally consented to the use of an ambient scribe for clinic note documentation during this visit. Discussion Notes I thoroughly discussed the patient's current condition, including the findings from her EMG and nerve conduction studies, which confirm right carpal tunnel syndrome and suggest potential chronic ulnar neuropathy or cubital tunnel syndrome. I informed her about the surgical procedure options, highlighting the benefits of direct treatment of carpal tunnel syndrome through carpal ligament release under local anesthesia. I explained possible outcomes, such as alleviating muscle wasting and improving sensation, though complete sensory recovery is uncertain due to pre-existing nerve damage. We contemplated cubital tunnel syndrome surgery, which is more extensive and conducted under general anesthesia. Understanding her preference to avoid surgery due to the absence of pain and main symptoms of numbness, we explored non-surgical options. These included wearing a brace or considering occupational therapy to improve hand functionality. Corticosteroid injections were discussed as a potential temporary intervention but with risks of not addressing the underlying condition. Given these discussions, we agreed on referring her to Dr. Garcia to explore the possibility of pursuing injection therapy further. Patient Instructions - Wear a wrist brace at night to help manage symptoms. - Consider occupational therapy to improve hand strength and movement. - Discuss possible corticosteroid injection therapy with Dr. Garcia. - Follow up as needed if symptoms worsen or new symptoms develop. - Return to the clinic if there is any sudden increase in numbness, pain, or weakness. Coding Level of Care Code Est Pt Level 3 (66368) Diagnoses Right carpal tunnel syndrome G56.01 Ulnar neuropathy of right upper extremity G56.21
[2024-06-22 10:42] VITALS: BMI 22.7
--- OUTSIDE RECORDS SUMMARY | 2024-06-22 11:29 | XMS_ITS | Clinical Summary ---
Author Organization [facility] Address [address] [place] [address] Care Team Providers Care Nailing Machine Operator Automatic Name Role Phone Elio Dillard MD Primary Care Provider [phone] Allergies Active Allergy Reactions Criticality Noted Date [...] Advance Directives For more information, please contact: [phone] Documents on File Type Date Recorded Patient Manager Studio Expl anation Advance Directive and Living Will 10/19/2019 3:07 PM Care Teams Nailing Machine Operator Automatic Relationship Specialty Start Date End Date Elio Dillard MD PCP - General Internal Medicine 07/14/16
--- OUTSIDE RECORDS SUMMARY | 2024-06-22 11:29 | XMS_ITS | Encounter Summary ---
Author Organization [facility] Address [address] [place] [address] Care Team Providers Care Design Technology Professor Name Role Phone Elio Dillard MD Primary Care Provider [phone] Encounter Details Date Type Department Care Team (Latest Contact Info) Description 02/23/2024 Lab Requisition [facility] - Main Lab 299 [facility] [place] [phone] Rinku Geller MD [address] [phone] Postmenopausal bleeding Social History Tobacco Use Types [...] Description 10/02/2024 11:30 AM EDT Office Visit [facility] Hematology Oncology [address] [place] [address] Hector Rodriguez MD [address] [place] [address] documented as of this encounter Procedures Procedure [...] did not survive processing. 02/24/2024 11:42 AM [facility] Clinical Information PMB 02/24/2024 11:42 AM [facility] Gross Description A. Endometrium, biopsy: Labeled with the patient's name and information only. Received in formalin is an approximately less than 0.1 cm cm aggregate of scant, white tissue flakes, which is wrapped in paper and submitted in toto in one cassette, multiple pieces, multiple levels. Please note: Specimen may not survive processing. dvb/AL 02/24/2024 11:42 AM [facility] Disclaimer Unless otherwise specified, all tissue is 10% NB formalin fixed and paraffin embedded. 02/24/2024 11:42 AM [facility] Tissue Endometrial structure / Unknown 02/23/2024 02/23/2024 2:51 PM EST us Rinku Geller MD LAB PATHOLOGY ORDERABLES Final Result [facility] [address] [place] [address], documented in this encounter Visit Diagnoses Diagnosis Postmenopausal bleeding documented in this encounter Care Teams Design Technology Professor Relationship Specialty Start Date End Date Elio Dillard MD [address] [place], [place] [phone] (Work) PCP - General Internal Medicine 02/26/08 documented as of this encounter
--- OUTSIDE RECORDS SUMMARY | 2024-06-22 11:29 | XMS_ITS | Encounter Summary ---
Author Organization [facility] Address [address] [place] [address] Care Team Providers Care Felter Tennis Balls Name Role Phone Elio Dillard MD Primary Care Provider [phone] Encounter Details Date Type Department Care Team (Late st Contact Info) Description 02/23/2024 Lab Requisition [facility] - Main Lab 299 [facility] [place] [phone] Rinku Geller MD [address] [phone] Unspecified abnormal cytological findings in specimens from [...] Description 10/02/2024 11:30 AM EDT Office Visit [facility] Hematology Oncology [address] [place] [phone] Hector Rodriguez MD [address] [place] [phone] documented as of this encounter Procedures Procedure Name Priority Date/Time Associated Diagnosis Comments PAP SMEAR Routine 02/23/2024 12:00 AM EST Unspecified abnormal cytological findings in specimens from cervix uteri documented in this encounter Results * Pap smear (02/23/2024 12:00 AM EST) Interpretation Negative for intraepithelial lesion or malignancy 03/01/2024 11:06 AM [facility] Clinical Information 03/01/2024 11:06 AM [facility] General Categorization Negative 03/01/2024 11:06 AM [facility] Specimen Adequacy Satisfactory for evaluation, endocervical/koenig sformation zone component present 03/01/2024 11:06 AM [facility] Pap Methodology Liquid Based Pap Test 03/01/2024 11:06 AM [facility] Disclaimer The Pap test is a screening test which carries an inherent false negative rate. These test results should be correlated with the patient's clinical findings and history. This Pap test was processed using an automated screening system. Technical cytopathology services provided by [facility], at [address] [place] [address] (CLIA # [id number]/Almas Hong MD, Brine Tank Operator.) 03/01/2024 11:06 AM [facility] Console Pap Interpretation Reported 03/01/2024 11:06 AM [facility] Brushing/Spatula Cervix uteri structure / Unknown 02/23/2024 02/23/2024 3:21 PM EST us Rinku Geller MD LAB CYTOLOGY ORDERABLES Final Result [facility] [address] [place] [address], documented in this encounter Visit Diagnoses Diagnosis Unspecified abnormal cytological findings in specimens from cervix uteri documented in this encounter Care Teams Felter Tennis Balls Relationship Specialty Start Date End Date Elio Dillard MD [address] [place] [address] PCP - General Internal Medicine 02/26/08 documented as of this encounter
--- OUTSIDE RECORDS SUMMARY | 2024-06-22 11:29 | XMS_ITS | Continuity of Care Document ---
Author Organization [facility] Address [address] [place] [address] Phone Care Team Providers Care Calender Supervisor Name Role Phone Stew PAUL, RVT, RPVI, Gordy Unavailable U navailable Allergies, Adverse Reactions, Alerts Substance Reaction Status Criticality CIPROFLOXACIN HCL Active No Informa tion ciprofloxacin Active No Information Medications Medication Instructions Dosage Effective Dates (start - stop) Status Comments Fosamax 70 mg tablet - Active meloxicam 7.5 mg tablet - Active atorvastatin 10 mg tablet - Acti ve omeprazole 20 mg capsule,delayed release - Active Procedures Procedure Date Duplex Scan-extrem Veins; Uni/ CT & [place] S Office/Outpt E&M Established 15 Mins- CT & [place] Office/Outpt E&M Established 15 Mins- CT & [place] Duplex Scan-extrem Veins; Comp- CT & [place] Duplex Scan-extrem Veins; Uni/ CT & [place] J Duplex Scan-extrem Veins; Uni/ [place] & [place] J Ultrason Guidan Needle Bx-rad- CT & [place] J Inj Sclerosing Solution; Sngl- CT & [place] J Varithena, Single Truncal Vein - CT & [place] Endovenous Laser, 1st Vein- CT & [place] Duplex Scan-extrem Veins; Uni/ CT & [place] J Varithena, Single Truncal Vein - CT & [place] Endovenous Laser, 1st Vein- CT & [place] Endovenous laser vein addon- CT & [place] July Office/Outpt E&M Established 15 Mins- CT & [place] Office/Oupt E&M New Pt 45 Mins- CT & [place] Surgical Stockings CVR Reveal Thigh High Duplex Scan-extrem Veins; Comp- CT & [place] Advance Directives Directive Yes / No Effective Date File Name No Information Encounters Encounter Description Practice Location Reason(s) For Visit Diagnoses Date Provider Providers Copied on Encounter [facility] GAL[facility]O, [address] [place] [address] Dr Luciano [address] [address]Dick [place], [id number], [place] [phone] [facility] - [place] - [place] No Information Sep-2 4 Stew PAUL RVT, FILEMON Kaminski. [address] [place] [address], [place], [id number] , [place]. [phone] [facility], [address] [place] [address] Dr Luciano [address] [address] [place], [id number], [place] tel:[phone] [facility] [place] Pain in right leg Sep-1 4 Stew PAUL RVT, FILEMON Kaminski. [address] [place] [address], [place], [id number] , [place]. [phone] Referring Provider: Muna Orr [facility], [address] [place] [address], [facility]. tel:[phone] Office/Outpt E&M Established 15 Mins- [place] & [place] [facility] MD GALINDO, [address] [place] [address] Dr Luciano 1000[address] 1000Dick [place], [id number], [place] tel:[phone] [facility] - [place] Chronic venous hypertension (idiopathic) with other complications of bilateral lower extremity Sep- 4 Stew PAUL RVT, FILEMON Kaminski. [address] [place] [address], [place], [id number] , [place]. tel:[phone] Referring Provider: Muna Orr PAC A, [address], [facility]. tel:[phone] Office/Outpt E&M Established 15 Mins- [place] & [place] [facility] MD GALINDO, [address] [place] [address] Dr Luciano 1000[address] 1000Dick [place], [id number], [place] tel:[phone] CVR [facility] Localized edemaVenous insufficiency (chronic) (peripheral) 4 Stew PAUL RVT, FILEMON Kaminski. [address] [place] [address], [place] [address], [place], [id number] , [place]. tel:[phone] Referring Provider: Muna DAVIS A, [address] [place] [address], [facility]. tel:[phone] [facility], [address] [place] [address] [address]Dick [place], [id number], [place] tel:[phone] [facility] Varicose veins of bilateral lower extremities with pain 4 Stew PAUL RVT, FILEMON Kaminski. [address] [place] [address], [place] [address], [place], [id number] , [place]. tel:[phone] Referring Provider: Muna Carrillo, [address] [place] [address], [facility]. tel:[phone] [facility], [address] [place] [address] Dr Luciano 1000[address] 1000Dick [place], [id number], [place] tel:[phone] [facility] Encounter for follow-up examination after completed treatment for conditions other than malignant neVaricose veins of left lower extremity with pain 4 Stew PAUL RVT, FILEMON Kaminski. [facility], [address], [place], [id number] , [place]. tel:[phone] Referring Provider: Muna Carrillo, [address], [id number]. tel:[phone] [facility] MD GALINDO, [address] [place] [address] Dr Luciano 1000[address] 1000Dick [place], [id number], [place] tel:[phone] CVR - [place] - [place] Encounter for follow-up examination after completed treatment for conditions other than malignant nePain in left leg 4 Stew PAUL RVT, FILEMON Kaminski. [address] [facility], [address], [place], [id number] , [place]. [phone] Referring Provider: Muna Orr PAC A, [address] [place] [address], [id number]. tel:[phone] [facility] MD GALINDO, [address] [place] [address] Dr Luciano [address] 1000Dick [place], [id number], [place] tel:[phone] CVR - [facility] Varicose veins of left lower extremity with other complications Kumar- 4 Darvin Tsai . [address] [facility], [address], [facility] [place], [id number] , [place]. tel:[phone] Referring Provider: Muna Orr PAC A, [address] [place] [address], [address]. tel:[phone] [facility] MD GALINDO, [address] [place] [address] Dr Luciano [address]Suite [place], [id number], [place] tel:[phone] CVR - [facility] Varicose veins of left lower extremity with other complications Aug- 4 Stew PAUL RVT, FILEMON Kaminski. [address] [facility], [address], [facility] [place], [id number] , [place]. tel:[phone] Referring Provider: Muna Orr PAC A, [address] [place] [address], [address]. tel:[phone] [facility] MD GALINDO, [address] [place] [address] Dr Luciano 1000[address] 1000Dick [place], [id number], [place] tel:[phone] [facility] Varicose veins of left lower extremity with other complications 4 Stew PAUL RVT, RPVI Robert. [address] [place] [address], [place], [place], [id number] , [place]. [phone] Referring Provider: Muna Orr PAC A, [address], [facility]. tel:[phone] [facility], [address] [place] [address] Dr Luciano [address]Suite [place], [id number], [phone] CVR - [facility] Encounter for follow-up examination after completed treatment for conditions other than malignant ne 4 Stew PAUL RVT, RPVI Robert. [address] [place] [address], [facility], [place], [id number] , [place]. [phone] Referring Provider: Muna Orr PAC A, [address] [facility] [place] [address], [facility]. tel:[phone] [facility], [address] [place] [address] Dr Luciano [address]Suite [place], [id number], [place] tel:[phone] CVR - [facility] Chronic venous hypertension (idiopathic) with inflammation of right lower extremity 4 Stew PAUL RVT, RPVI Robert. [address] [place] [address], [facility] [place], [id number] , [place]. [phone] Referring Provider: Muna Orr PAC A, [address] [place] [address], [facility]. tel:[phone] [facility], [address] [place] [address] Dr Luciano [address] [place], [id number], [place] tel:[phone] CVR - [facility] Chronic venous hypertension (idiopathic) with inflammation of right lower extremity 4 Stew PAUL RVT, RPVI Robert. [address] [place] [address], [place], [id number] , [place]. [phone] [place] [facility], [address] [place] [address] Dr Luciano [address] Dick Hawk MD, [id number], [place] tel:[phone] CVR - [place] - [place] No Information 4 Stew PAUL RVT, FILEMON Kaminski. [address] [place] [address], [place], [id number] , [place]. [phone] Office/Outpt E&M Established 15 Mins- CT & [place] [facility], [address] [place] [address] Dr Luciano [address] Dick [place], [id number], [place] tel:[phone] [facility]R - [place] Varicose veins of bilateral lower extremities with painPain in right legPain in left leg 4 Stew PAUL RVT, FILEMON Kaminski. [address] [place] [address], [place], [id number] , [place]. [phone] Referring Provider: Muna Orr PAC A, [address] [place] [address], [facility]. tel:[phone] Office/Oupt E&M New Pt 45 Mins- CT & [place] [facility], [address] [place] [address] Dr Luciano 1000Dick ke[place], [id number], [place] tel:[phone] [facility]R - [place] [facility] [place] Varicose veins of bilateral lower extremities with other complications Pain in left lower legPain in right legPain in left legDisorder of pigmentation, unspecifiedLo calized edema Jun-0 4 Stew PAUL RVT, FILEMON Kaminski. [address] [place] [address], [place], [id number] , [place]. tel:[phone] Referring Provider: Muna Orr PAC A, [address], [facility]. tel:[phone] [facility], [address] [place] [address] Dr Luciano [address] [place], [place], [id number], [place] tel:[phone] CVR - [place] - [place] Chronic venous hypertension (idiopathic) with other complications of bilateral lower extremity 4 Stew PAUL, RVT, RPVI Gordy. [address] [facility] 302, [facility] [place], [id number] , [place]. tel:[phone] Referring Provider: Muna Orr [facility], [address] [place] [address] [address] [place], [address]. tel:[phone] Family History Family Member Type Diagnosis Age At Onset No Information Payers Payer name Insurance type Covered libertarian ID Authoriza tion(s) Medicare LEOBARDO PERALES [id number] BCBS LEOBARDO PADGETT [id number] Social History Type Description Quantity Date Captured Comments Sex Female Smoking Status No Information Chief Complaint And Reason For Visit No Information Reason For Referral Reason For Referral No Information History Of Present Illness Encounter Date Complaint History Of Prese nt Illness No Information Functional Status Date Functional Assessmen t No Information Instructions Date Instruction Additional Infor mation Patient education booklet given Related to Chronic venous hypertension (idiopathic) with other complications of bilateral lower extremity Pre and post instruc tions reviewed and provided Related to Chronic venous hypertension (idiopathic) with other complications of bilateral lower extremity Patient education booklet given Related to Localized edema Compression stocking usage as conservative measure Related to Localized edema Patient education booklet given Related to Varicose veins of bilateral lower extremities with other complications Compression stocking usage as conservative measure Related to Varicose veins of bilateral lower extremities with other complications Assessments Type Assessment Date No Information Patient Care Teams Name Effective Dates (start - stop) Status Members No Information
--- OUTSIDE RECORDS SUMMARY | 2024-06-22 11:29 | XMS_ITS | Clinical Summary ---
Author Organization [facility] Address [address] [place] [address] Phone Care Team Providers Care Dishwasher Name Role Phone Elio Dillard MD Primary Care Provider [phone] Allergies Active Allergy Reactions Criticality Noted Date [...] slowly and thoroughly. Avoid large bites and [id number]-[id number] foods. Favoring a softer food diet is [...] - 06/13/2024 11:59 PM EDT Hospital Encounter [facility] Bone Density [address] [place] [address] Osteoporosis, unspecified osteoporosis type, unspecified pathological fracture presence Discharge Disposition: Home or Self Care 05/04/2024 3:07 PM EST - 05/04/2024 11:59 PM EST Hospital Encounter [facility] Xray [address] [place] [address] Cervicalgia Discharge Disposition: Home or Self Care 04/09/2024 8:53 AM EST Anesthesia Event [facility] Main OR [address] [place] [address] Jose Manuel Austin MD 04/09/2024 8:45 AM EST - 04/09/2024 10:00 AM EST Surgery [facility] Main OR [address] [place] [address] Rinku Geller MD FRACTIONAL D&C [[id number] (CPT??)] 04/09/2024 7:03 AM EST - 04/09/2024 11:26 AM EST Hospital Encounter [facility] Main OR [address] [place] [address] Rinku Geller MD Postmenopausal bleeding (Primary Dx) Discharge Disposition: Home or Self Care from Last 3 Months Immunizations Name Administration [...] Visit [facility] Hematology Oncology [address] [place] [address] Hector Rodriguez MD [address] [place] [address] Health Maintenance Due Date Last Done Comments DTaP,Tdap,and Td Vaccines (1 - Tdap) 06/16/1959 Cholesterol Screening (Lipid Panel) 02/12/2022 Depression Screening 02/12/2022 Medicare Annual Wellness Visit 02/12/2022 Social Influencers of Health Screening 02/12/2022 COVID-19 Vaccine ( season) 2023 11/26/2022, 01/04/2022, 08/25/2021, Additional history exists Falls Risk Assessment 04/09/2025 04/09/2024 Osteoporosis Screening (Bone Density Screening) 06/13/2034 06/13/2024, 11/30/2022, 08/05/2020, Additional history exists Zoster [...] Routine 04/09/2024 9:13 AM EST Postmenopausal bleeding LA HYSTEROSCOPY W/BIOPSY ENDOMETRIUM AND/OR POLYPECTOMY W/O AND/OR [...] since the prior examination of 11/29/2022. Code 71320 -------- FINAL REPORT -------- Dictated By: Price Cali Dictated Date: 06/14/2024 10:35 ET Assigned Physician: Price Cali Reviewed and Electronically Signed By: Price Cali Signed Date: 06/14/2024 10:37 ET Workstation ID: [id number] Transcribed By: Self Edit Transcribed Date: 06/14/2024 [...] spine since theprior examination of 11/29/2022. Code 12082 -------- FINAL REPORT -------- Dictated By: Price Cali Dictated Date: 06/14/2024 10:35 ET Assigned Physician: Price Cali Reviewed and Electronically Signed By: Price Cali Signed Date: 06/14/2024 10:37 ET Workstation ID: [id number] Transcribed By: Self Edit Transcribed Date: 06/14/2024 [...] C3-4, C5-6, C6-7, and C7-T1 levels. Code 29239 -------- FINAL REPORT -------- Dictated By: Price Cali Dictated Date: 05/09/2024 08:19 ET Assigned Physician: Price Cali Reviewed and Electronically Signed By: Price Cali Signed Date: 05/09/2024 08:22 ET Workstation ID: [id number] Transcribed By: Self Edit Transcribed Date: 05/09/2024 [...] the C3-4, C5-6,C6-7, and C7-T1 levels. Code 94891 -------- FINAL REPORT -------- Dictated By: Price Cali Dictated Date: 05/09/2024 08:19 ET Assigned Physician: Price Cali Reviewed and Electronically Signed By: Price Cali Signed Date: 05/09/2024 08:22 ET Workstation ID: [id number] Transcribed By: Self Edit Transcribed Date: 05/09/2024 08:19 ET us Elio Dillard MD IMG XR PROCEDURES Final Resu lt * TH AN LMA(NO CHARGE) (04/09/2024 9:19 AM EST) Forrest Wing SRNA - 04/09/2024 9:19 AM EST RODRIGO Deras ? 04/09/2024 ??9:20 AM General Information and Staff Patient location during procedure: OR Resident/SPLITTING MACHINE OPERATOR: RODRIGO Deras Performed by: RODRIGO Deras Authorized [...] atypia, or neoplasia identified. 04/10/2024 11:06 AM [facility] Gross Description A. Cervix, Endocervical [...] 9:15 AM EST 04/09/2024 10:44 AM EST Rinku Geller MD LAB PATHOLOGY ORDERABLES Final Result [facility] [address] [place] [address], * (ABNORMAL) CBC auto differential (04/02/2024 12:41 [...] 2:47 PM [facility] Monocytes Absolute 0.77 0.20 - 1.00 K/[facility]L LAB HEMETOLOGY METHOD 04/02/2024 2:47 PM [facility] Eosinophils Absolute 0.05 0.00 - 0.50 K/[facility] HEMETOLOGY METHOD 04/02/2024 2:47 PM EST [facility] Basophils Absolute 0.04 0.00 - 0.20 K/[facility] HEMETOLOGY METHOD 04/02/2024 2:47 PM EST [facility] Immature Granulocytes Absolute 0.04(H) 0.00 - 0.03 K/[facility] HEMETOLOGY METHOD 04/02/2024 2:47 PM EST [facility] Blood Venous blood specimen / Unknown Venipuncture / Unknown 04/02/2024 12:41 PM EST 04/02/2024 1:54 PM EST us Rinku Geller MD LAB BLOOD ORDERABLES Final Res ult Performing Organization Address City/[facility]/ZIP Co de Phone Number [facility] [address] [place] [address], [place] [phone] * Type and screen (04/02/2024 12:41 PM EST) ABO Group O 04/02/2024 2:56 PM EST [facility] Rh Type Positive 04/02/2024 2:56 PM EST [facility] Antibody Screen Negative 04/02/2024 2:56 PM EST [facility] Blood Venous blood specimen / Unknown Venipuncture / Unknown 04/02/2024 12:41 PM EST 04/02/2024 1:54 PM EST us Rniku Geller MD LAB BLOOD BANK TEST ORDERABLES Final Result [facility] [address] [place] [address], [place] [phone] from Last 3 Months Insurance MEDICARE [facility] Advance Directives Documents on File Type Date Recorded 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 Care Teams Dishwasher Relationship Specialty Start Date End Date Elio Dillard MD [address] [place] [address] PCP - General Internal Medicine 02/26/08
--- OUTSIDE RECORDS SUMMARY | 2024-06-22 11:29 | XMS_ITS | Continuity of Care Document ---
Author Organization [facility] Address [address] [place] [address] Phone [phone] Social History Type Date Description Comments Sex Unknown Medical Devices Description No Information Available Encounters Description No Information Available Assessments Description No Information Available Plan of Treatment No Information Available Functional Status Description No Information Available Mental Status Description No Information Available Referrals Description No Information Available
== END 2024-06-22 11:27 | disposition home or self-care (01) ==
LOC: HO.HOS 10:32
PROVIDERS: PCP Internal Medicine
DX: G56.01 Carpal tunnel syndrome, right upper limb (principal); G56.21 Lesion of ulnar nerve, right upper limb
CPT/HCPCS: 99213

== ENCOUNTER → 2024-06-22 10:31 | Outpatient (BNVA) | payer MEDICARE, SELFPAY | PROVIDERS: PCP Internal Medicine | DX: G56.01 Carpal tunnel syndrome, right upper limb (principal); G56.21 Lesion of ulnar nerve, right upper limb | CPT/HCPCS: 99212 ==

== ENCOUNTER 2024-07-03 14:40 | Outpatient (AMB) | payer MEDICARE, SELFPAY ==
--- NOTE | 2024-07-03 14:44 | A.OFFVIS_ITS ---
Vital Signs 07/03/24 14:45 Height 5 ft 1 in Weight 120 lb BMI 22.7 Intake Visit Reasons: OV-Rt hand numbness/tingling Intake Note: Juliana 84 yr old female presents today for a follow up visit for discuss CTS injection vs surgical intervention. Patient reports she is having difficulty with lifting, gripping, grasping, and squeezing and any of these activities exacerbate her pain. She wakes up in the morning with numbness and tingling, as the day goes on it resolves with hand usage however comes back with over use of the right hand. Her CTS are throughout her entire right hand digits. Last seen with Iker Arriaga who states patient would like to avoid surgical intervention and would like to discuss injection. Currently states she would like to get more info regarding surgery. Allergies ciprofloxacin [From Cipro] Allergy (Intermediate, Verified 07/03/24 14:45) Rash HPI HPI OV-Rt hand numbness/tingling: Details: Juliana is an 84 year old right hand dominant woman who presents for a NCS review of her right hand numbness. She is seen today with her . She complains of numbness in all digits of her right hand. Symptoms intermittent, but daily, worse at night. She says her numbness is worse in the mornings and before bed. Her sensation resolved throughout the day but she finds overuse causes her numbness to return. She also complains of pain and weakness in her hand, worse with lifting, gripping, and squeezing activities. She has a Hx of a previous cervical fusion. She says she is concerned about surgery vs injections, and wanted to ask questions about this PFSH Social History Alcohol intake: current Alcohol intake frequency: holidays/special occasions only Patient Tobacco Use Status: Never used Tobacco Current occupational status: retired Current occupation: right handed Review of Systems Const All systems reviewed & are unremarkable except as noted in HPI and below Physical Exam Vital Signs: BMI result Body Mass Index 22.7 Const General: cooperative, healthy appearing and no acute distress Orientation/consciousness: patient oriented x3 HEENT Head: Yes normocephalic and Yes atraumatic Eyes EOM: EOMs intact bilaterally Resp Effort & Inspection: normal respiratory effort and able to speak in complete sentences Cardio Jugular venous distension: no JVD Skin General skin exam: turgor normal Rashes: no rashes Neuro General: patient oriented x3 Extrem Other: Evaluation of Right Upper Extremity: The patient is alert, oriented, and in no acute distress Neuro: Dense numbness in the median nerve distribution today in clinic. Normal sensation to the small finger No thenar or intrinsic wasting Good APB muscle belly firing and good finger cross Vascular: Cap refill brisk ROM: She can bring her fingers closed to a fist and back into extension No motion at the 2nd MCP joint, this appears to be fused at ~20-30 degrees of flexion, NTTP Skin: No lacerations or abrasions. General: No Ecchymosis. No Erythema or evidence of infection. Nerve Conduction Study: IMPRESSION: 1. This is an abnormal study. 2. 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 3. There are electrodiagnostic findings suggestive of a either chronic ulnar neuropathy versus C8-T1 cervical radiculopathy. Maritza Tabor MD, CARLOS 06/14/24 Psych Appearance: grossly normal Affect: normal affect Attitude: cooperative Assessment & Plan Assessment & Plan (1) Right carpal tunnel syndrome: Code(s): G56.01 - Carpal tunnel syndrome, right upper limb Category: Medical (2) Ulnar neuropathy of right upper extremity: Code(s): G56.21 - Lesion of ulnar nerve, right upper limb Category: Medical (3) History of fusion of cervical spine: Code(s): Z98.1 - Arthrodesis status Category: Surgical Plan Assessment & Plan: 1. Right carpal tunnel syndrome, moderate-severe Dense numbness, worse at night and in the morning This is her primary complaint today I educated her about this condition I discussed operative and non-operative treatment options The patient would like to proceed with surgery The risks and benefits of operative treatment were discussed with the patient and the patient wishes to proceed with surgery. These risks include, but are not limited to risk of damage to blood vessels, nerves, tendons, infection, recurrence, incomplete relief of preoperative symptoms, persistent pain, possible need for further surgery and the risks associated with regional blocks and anesthesia. I explained the risks of her sensation not returning, but that surgery is important to maintain muscle function and preserve any sensation possible. She expressed understanding. I explained that it may take up to 9 months post-operatively for any sensation to return. The plan is to take the patient to the operating room sometime in the next few weeks for the following procedures: 1. Right carpal tunnel release, under local All of the preoperative paperwork including the consent was reviewed today. All the patient's questions were answered. The patient understands that they will be contacted by our plastic surgery specialist soon to schedule this procedure She denies Diabetes, blood thinners, asthma, heart, lung, kidney issues 2. Possible right cubital tunnel syndrome vs cervical radiculopathy Hx of cervical fusion Symptoms intermittent Scribed for Sandra Garcia MD by Michelet Barry, medical lab assistant, on 07/03/24 at 2:55 PM, EST. Coding Level of Care Code Est Pt Level 4 (88998) Diagnoses Right carpal tunnel syndrome G56.01 Ulnar neuropathy of right upper extremity G56.21 History of fusion of cervical spine Z98.1
[2024-07-03 14:45] VITALS: BMI 22.7
--- OUTSIDE RECORDS SUMMARY | 2024-07-03 17:37 | XMS_ITS | Encounter Summary ---
Author Organization [facility] Address [address] [place] [address] Care Team Providers Care Help Desk Intern Name Role Phone Elio Dillard MD Primary Care Provider [phone] Encounter Details Date Type Department Care Team (Latest Contact Info) Description 02/23/[address] [facility] - Main Lab [address] [facility] [place] [phone] Rinku Geller MD [address] [place] [address] [phone] Postmenopausal bleeding Social History Tobacco Use Types [...] Description 10/02/2024 11:30 AM EDT Office Visit [facility] Hematology Oncology [address] [place] [address] Hector Rodriguez MD [address] [place] [address] documented as of this encounter Procedures Procedure [...] Geller MD LAB PATHOLOGY ORDERABLES Final Result [facility] [address] [place] [address], documented in this encounter Visit Diagnoses Diagnosis Postmenopausal bleeding documented in this encounter Care Teams Help Desk Intern Relationship Specialty Start Date End Date Elio Dillard MD [address] [place], [place] [phone] (Work) PCP - General Internal Medicine 02/26/08 documented as of this encounter
--- OUTSIDE RECORDS SUMMARY | 2024-07-03 17:37 | XMS_ITS | Encounter Summary ---
Author Organization [facility] Address [address] [place] [address] Care Team Providers Care Heating Equipment Repairer Name Role Phone Elio Dillard MD Primary Care Provider [phone] Encounter Details Date Type Department Care Team (Late st Contact Info) Description 02/23/[address] [facility] - Main Lab [address] [facility] [place] [phone] Rinku Geller MD [address] [phone] Unspecified abnormal cytological findings in specimens from [...] 10/02/2024 11:30 AM EDT Office Visit [facility] Hematology Oncology [address] [place] [phone] Hector Rodriguez MD [address] [place] [phone] documented as of this encounter Procedures Procedure Name Priority Date/Time Associated Diagnosis Comments PAP SMEAR Routine 02/23/2024 12:00 AM EST Unspecified abnormal cytological findings in specimens from cervix uteri documented in this encounter Results * Pap smear (02/23/2024 12:00 AM EST) Interpretation Negative for intraepithelial lesion or malignancy 03/01/2024 11:06 AM [facility] Clinical Information 03/01/2024 11:06 AM [facility] General Categorization Negative 03/01/2024 11:06 AM [facility] Specimen Adequacy Satisfactory for evaluation, endocervical/koenig sformation zone component present 03/01/2024 11:06 AM [facility] Pap Methodology Liquid Based Pap Test 03/01/2024 11:06 AM [facility] Disclaimer The Pap test is a screening test which carries an inherent false negative rate. These test results should be correlated with the patient's clinical findings and history. This Pap test was processed using an automated screening system. Technical cytopathology services provided by [facility], at [address] [place] [address] (CLIA # [id number]/Almas Hong MD, Drawer In Plain Loom.) 03/01/2024 11:06 AM [facility] Console Pap Interpretation Reported 03/01/2024 11:06 AM [facility] Brushing/Spatula Cervix uteri structure / Unknown 02/23/2024 02/23/2024 3:21 PM EST us Rinku Geller MD LAB CYTOLOGY ORDERABLES Final Result [facility] [address] [place] [address], documented in this encounter Visit Diagnoses Diagnosis Unspecified abnormal cytological findings in specimens from cervix uteri documented in this encounter Care Teams Heating Equipment Repairer Relationship Specialty Start Date End Date Elio Dillard MD [address] [place] [address] PCP - General Internal Medicine 02/26/08 documented as of this encounter
--- OUTSIDE RECORDS SUMMARY | 2024-07-03 17:38 | XMS_ITS ---
Continuity of Care Document (CCD) Created on: July 03, 2024 Lesviarobyn Juliana External Reference #: [id number] Sex: Female Author Organization [facility] Address [address] [place] [address] Phone [phone] Social History Type Date Description Comments Sex Unknown Medical Devices Description No Information Available Encounters Description No Information Available Assessments Description No Information Available Plan of Treatment No Information Available Functional Status Description No Information Available Mental Status Description No Information Available Referrals Description No Information Available
--- OUTSIDE RECORDS SUMMARY | 2024-07-03 17:38 | XMS_ITS | Clinical Summary ---
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
== END 2024-07-03 15:32 | disposition home or self-care (01) ==
LOC: HO.HOS 14:41
PROVIDERS: PCP Internal Medicine; Visit Provider Orthopaedic Surgery
DX: G56.01 Carpal tunnel syndrome, right upper limb (principal); G56.21 Lesion of ulnar nerve, right upper limb; Z98.1 Arthrodesis status
CPT/HCPCS: 99214

== ENCOUNTER → 2024-07-03 14:40 | Outpatient (BNVA) | payer MEDICARE, SELFPAY | PROVIDERS: PCP Internal Medicine; Visit Provider Orthopaedic Surgery | DX: G56.01 Carpal tunnel syndrome, right upper limb (principal); G56.21 Lesion of ulnar nerve, right upper limb; Z98.1 Arthrodesis status | CPT/HCPCS: 99212 ==